=== PATIENT | male | born 1970 | race Caucasian/White ===

== ENCOUNTER → 2017-10-20 | Outpatient (CLI) | payer BC ==
[~2017-10-20] MED LIST: BACLOFEN20 MG PO; BUPRENORPHINE HC2 MG SL; IBUPROFEN 800800 M1 PO; LIORESAL 10 MG10 MG PO; MEDROLDOSEPACK PO; MOBIC15 MG PO; NEURONTIN 300300 M1 PO; NUCYNTA50 MG PO; SKELAXIN 800 M800 M1 PO; TRAMADOL 50 MG50 MG PO; VOLTAREN100 GM TOP
--- NOTE | 2017-11-02 08:21 | PAINCON ---
[address] [address] PAIN MANAGEMENT CONSULTATION Name: MARILIN ARENAS [id number] Admission: 10/20/17 Attend Phys: Marcus Whiting MD Discharge: Date of : 66 Report #: [id number] THIS REPORT FOR: //name// CC: DO Marcus Cordero DATE OF SERVICE: 10/20/2017 CHIEF COMPLAINT: Low back pain with burning at the end of the day. HISTORY OF PRESENT ILLNESS: The patient is a 47-year-old gentleman who has been seen in the pain clinic because of chronic pain in the neck. He has undergone a spinal cord stimulator. This is for axial pain in his back. This was done in 06/2016. He does not feel that it has been significantly helpful. He has also continued to have cervical pain. He has been seen in the pain clinic by Dr. Howard. He denies any significant history of injury or trauma. He describes the pain as a burning, shooting, cramping, aching, pulling, gnawing, throbbing, pounding pain. He scores the pain as a 4/10 today. It involves his right neck and head. ALLERGIES: No known drug allergies. CURRENT MEDICATIONS: Tylenol 500 mg, Fosamax 70 mg, prednisone 5 mg tablets daily, Motrin 800 mg, tramadol 50 mg q.i.d., metolazone 800 mg t.i.d. PAST MEDICAL HISTORY: Asthma, tobacco use, seasonal allergies, chronic neck and back pain. PAST SURGICAL HISTORY: 1. Left knee surgery. 2. Bladder surgery. 3. Spinal cord stimulator trial implantation and permanent implantation. SOCIAL HISTORY: The patient chews tobacco, has done so for 30 years. Denies use of IV drugs. Occasional alcohol use. 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 REVIEW OF SYSTEMS: Questionnaire in the chart indicated weight changes, headaches, fatigue and weakness, wears glasses, glaucoma/cataracts, shortness of breath when lying flat, chronic frequent coughs, asthma. MUSCULOSKELETAL: Joint pains, joint stiffness, weakness, cramping, back pain, difficulty walking, frequent headaches, dizziness, memory loss, confusion, depression. PAIN CLINIC ASSESSMENT: [place] [address] PAIN MANAGEMENT CONSULTATION Name: MARILIN ARENAS Room: [facility]#: [id number] Admission: 10/20/17 Attend Phys: Marcus Whiting MD Discharge: Date of : 66 Report #: [id number] 1. The patient is not being treated for osteoarthritis or arthritis. 2. Height 6 feet, weight 193 pounds, BMI is 26. 3. VITAL SIGNS: Blood pressure 113/70, heart rate 60, respiratory rate is 16, room air saturation 98%, temperature 97.8. Pain intensity 10/10, at times 7-8/10, baseline 5/10 at its best. 4. Fall risk, the patient has not fallen in the last 3 months. 5. The patient is not on blood thinners. 6. Hypertension. The patient is not being treated for hypertension. 7. Chronic medication use. The patient has a contract with the pain clinic to get his medications from only one source. 8. Risk assessment tool. 9. Functional assessment tool. 10. Recreational drug use. The patient denies use of recreational drugs. Tobacco, the patient has chewed tobacco for the last 30 years. He states that he is trying to cut down. Alcohol: He describes occasional alcoholic use. PHYSICAL EXAMINATION: GENERAL: The patient is a well-developed, well-nourished white male. Appears his stated age. Orientation: The patient is alert and oriented x 3. Affect: the patient's affect is appropriate. HEENT: Normocephalic, atraumatic. Extraocular eye muscles are intact. Sclerae nonicteric. Dentation poor. NECK: Clear to auscultation without adenopathy. LUNGS: Clear. No wheezing, no rhonchi, no rales. CARDIOVASCULAR: Regular rate. ABDOMEN: Nontender, nondistended. EXTREMITIES: No clubbing, cyanosis or edema. There is a well healed surgical scar on his left knee. MUSCULOSKELETAL: The patient without significant kyphosis, lordosis, or scoliosis. Some tenderness over the paraspinous musculature in the cervical spine. No spinous process tenderness. Spurling's is negative. Muscle bulk and tone equal and symmetrical in the upper extremities. Muscle strength is equal at 5/5, intact to light touch C7-T1. Some pain in the low back, L5-S1 area as well as some paraspinal tenderness to palpation. IMPRESSION: 1. History of chronic neck pain. 2. Cervicalgia. 3. Chronic intractable pain, low back area with spinal stimulator. 4. Complex pain management using opioids. PLAN: We discussed treatment options with the patient. We will continue with his current medical regimen. We will renew his medications. A script for tramadol 50 mg 1 p.o. q.i.d., metolazone 800 mg 1 p.o. t.i.d. p.r.n., ibuprofen 800 mg p.o. q.8 hours p.r.n. have been written. The patient will call us if he has any problems with his medications. A script for diclofenac, [place] [address] PAIN MANAGEMENT CONSULTATION Name: MARILIN ARENAS Room: [facility]#: [id number] Admission: 10/20/17 Attend Phys: Marcus Whiting MD Discharge: Date of : 66 Report #: [id number] will be applied to the area of his thumb for the pain and discomfort. He will call us if he has any problems with his medications. We would like to thank you for letting us participate in his care. We hope he continues to improve. <ELECTRONICALLY SIGNED> By: Marcus Whiting MD 11/02/17 0821 1142 2031N. Blake Whiting MD /nt
== END ==
LOC: M.PC 03:51
DX: M54.5 Low back pain (principal); M54.2 Cervicalgia; G89.29 Other chronic pain; Z79.891 Long term (current) use of opiate analgesic

== ENCOUNTER → 2018-03-23 | Outpatient (CLI) | payer BC ==
--- NOTE | 2018-03-29 16:41 | PAINCON ---
[address] [address] PAIN MANAGEMENT CONSULTATION Name: MARILIN ARENAS Room: [facility] Bernabe#: [id number] Admission: 03/23/18 Attend Phys: Marcus Whiting MD Discharge: Date of : 66 Report #: [id number] THIS REPORT FOR: //name// CC: Sinan Whiting DATE OF SERVICE: 03/23/2018 CHIEF COMPLAINT: Chronic neck pain. HISTORY OF PRESENT ILLNESS: The patient is a 47-year-old gentleman who has been referred to the Pain Clinic for evaluation of back pain. The patient states that he has had a spinal cord stimulator in place. Does continue to have pain and discomfort on a regular basis. Does not use a spinal cord stimulator because it does not seem to be very efficacious. He is unable to cover a portion of his back, which is most problematic. Continues to have some pain and discomfort in the palm of his left hand. He has tried Voltaren, not sure how much pain relief that has provided. He has used tramadol in the past, it is not as successful as he would like for it to be. He has used ibuprofen 800 mg and continues to use Skelaxin. He has returned today for renewal of his medications. The patient has tried CBD oil, not sure whether or that was helpful. Did provide him some decrease in his anxiety. Notes that his mornings are worse. He has difficulty getting up and getting started. ALLERGIES: No known drug allergies. CURRENT MEDICATIONS: Tylenol 500 mg, Flomax 70 mg, prednisone 5 mg tablets daily, Motrin 800 mg, tramadol 50 mg q.i.d., metolazone 800 mg t.i.d. PAIN CLINIC ASSESSMENT: 1. The patient is not being treated for osteoarthritis. 2. Height 6 feet, weight 195 pounds, BMI is 26.5. 3. Vital signs: Blood pressure 135/88, respiratory rate 16, room air saturation is 100%, pulse 67, temperature 98.4. Pain score 9/10 today. 4. Fall risk. The patient has not fallen in the last 3 months. 5. Blood thinners. The patient is not on a blood thinning medication. 6. Hypertension. The patient is not being treated for hypertension. 7. Chronic medication use. The patient is on contract and gets medications through the Pain Clinic. 8. Risk assessment tool. 9. Functional assessment tool. 10. Recreational drug use. The patient denies use of recreational drugs. 11. Tobacco: The patient has chewed tobacco for the last 30 years. He is trying to cut down. 12. Alcohol: The patient denies use of alcohol [place] [address] PAIN MANAGEMENT CONSULTATION Name: MARILIN ARENAS Room: [facility]#: [id number] Admission: 03/23/18 Attend Phys: Marcus Whiting MD Discharge: Date of : 66 Report #: [id number] PHYSICAL EXAMINATION: GENERAL: The patient is a well-developed, well-nourished white male. Appears his stated age. He is alert and oriented x3. The patient has an appropriate affect. HEENT: Normocephalic, atraumatic. Extraocular eye muscles intact. Sclerae nonicteric. Mucous membranes are moist. Dentition is poor. NECK: Without adenopathy. LUNGS: Clear to auscultation without rhonchi or rales. ABDOMEN: Nontender. EXTREMITIES: No clubbing, cyanosis or edema. The patient has some pain and discomfort in the anterior portion/palm of his left hand. MUSCULOSKELETAL: Without significant kyphosis, scoliosis or lordosis. The patient has some paraspinous muscle discomfort in his spine. There is some tenderness. Spurling's is negative. Muscle strength is judged to be 5/5 for the major muscle groups in the upper extremity. The patient's low back pain is at approximately L1 through the L5-S1 area. His stimulator does not reach that level. If he turns it up high enough to reach a level causes muscle spasms. IMPRESSION: 1. History of chronic pain in the neck. 2. Cervicalgia. 3. Chronic intractable pain, low back area with some spinal cord stimulator, which he finds less helpful at this juncture. 4. Complex management of pain with the use of opioids. RECOMMENDATIONS: We discussed treatment options with the patient. At this juncture, we will continue with the tramadol 50 mg 1 p.o. q.4-6 hours p.r.n. pain. The patient will try Mobic 15 mg 1 p.o. daily. He will continue with Skelaxin 800 mg t.i.d. and he will call us if he has any problems with his medications. The patient will try a Medrol Dosepak in the interim. We would like to thank you for letting us participate in his care. We hope he continues to improve. <ELECTRONICALLY SIGNED> By: Marcus Whiting MD 03/29/18 1641 1710 [id number]. Blake Whiting MD /nt
== END ==
LOC: M.PC 01-12 09:00
DX: M54.2 Cervicalgia (principal); M54.5 Low back pain; G89.4 Chronic pain syndrome; Z79.899 Other long term (current) drug therapy

== ENCOUNTER → 2018-04-20 | Outpatient (CLI) | payer BC ==
--- NOTE | 2018-05-15 10:00 | PAINCON ---
[address] [address] PAIN MANAGEMENT CONSULTATION Name: DEEPAMARILIN Mchugh Room: [facility] Bernabe#: [id number] Admission: 04/20/18 Attend Phys: Marcus Whiting MD Discharge: Date of : 66 Report #: [id number] THIS REPORT FOR: //name// CC: Sinan Whiting DATE OF SERVICE: 04/20/2018 FOLLOWUP COMPLAINT: The Medrol Dosepak helps somewhat. I felt a little bit more limber. FOLLOWUP HISTORY: The patient is a 47-year-old gentleman, who has been followed in the Pain Clinic. As you recall, he has problems with chronic back pain. Also, has some cervical pain and discomfort as well. He was given a Medrol Dosepak at the last visit. Returns today indicating that the pain was improved somewhat with the Medrol Dosepak. Feels like he was a bit more limber. He does rate his pain as a 10/10 at this juncture. The weather pattern is beginning to change. Denies any new falls. Continues to use tramadol. Feels that it is somewhat helpful. Does not cause any problems with confusion or altering his sensorium. Feels that the Voltaren medication is helpful as well. He puts this in the area of his thumbs. Notes the Mobic or Motrin is helpful. Has used Meloxicam as well. Does not take the medications together. Feels that Skelaxin is somewhat helpful. The patient feels that he has "good days and bad days." Last few days have been more problematic with the reason for his pain being a 10. He has not tried gabapentin medication in the past. Continues to have pain and discomfort with activity, walking, sitting, standing, rising, lifting and bending. Has a spinal cord stimulator in place, but does not use it. ALLERGIES: No known drug allergies. MEDICATIONS: Tylenol 500 mg, Flomax 70 mg, prednisone tablets 5 mg daily, Motrin 800 mg, tramadol 50 mg q.i.d., and metolazone 800 mg t.i.d. PAIN CLINIC ASSESSMENT/PQRS: 1. The patient is not being treated for osteoarthritis or rheumatoid arthritis. 2. Height 6 feet, weight 196 pounds, BMI is 26.6. 3. VITAL SIGNS: Blood pressure 121/61, heart rate 67, respiratory rate 16, room air saturation 99%, and temperature 98.7. 4. Pain intensity 10/10. 5. Fall risk. The patient has not fallen in the last 3 months. 6. Hypertension. The patient has not been treated for hypertension. 7. Chronic opioid use. The patient denies use of medications other than those provided by the Pain Clinic. 8. Risk assessment tool. 9. Functional assessment tool. 10. Recreational drug use. The patient denies use [place] [address] PAIN MANAGEMENT CONSULTATION Name: MARILIN ARENAS Room: [facility]#: [id number] Admission: 04/20/18 Attend Phys: Marcus Whiting MD Discharge: Date of : 66 Report #: [id number] 11. Tobacco: The patient chews tobacco. He is trying to cut down on the amount of chewing tobacco. He is aware that this is problematic for his health. He is aware that nicotine levels are higher with use of this then with smoking. I have discussed the possible problems with oral health. 12. Alcohol. The patient denies other than occasional use of alcoholic beverages. PHYSICAL EXAMINATION: GENERAL: The patient is a well-developed, well-nourished white male. Appears his stated age. He is alert and oriented x 3. His affect is appropriate. HEENT: Normocephalic, atraumatic. Extraocular eye muscles intact. Sclerae nonicteric. Mucous membranes are moist. Dentition is somewhat poor. Show signs of chewing tobacco. NECK: Without adenopathy. LUNGS: Clear to auscultation without rhonchi or rales. ABDOMEN: Nontender. EXTREMITIES: Upper extremity without cyanosis or edema. The patient has some pain and discomfort in the anterior portion of his palm and in his left hand. MUSCULOSKELETAL: Without significant kyphosis, scoliosis, or lordosis. The patient walks with a slight limp and an antalgic gait. Muscle strength in the upper extremity is judged to be 5/5 as well as in the lower extremity. Spurling's test is negative. The patient has some pain and discomfort when problematic. It is in the L5-S1 area. The patient does have a spinal cord stimulator which he is not using. IMPRESSION: 1. History of chronic neck pain. 2. Axial back pain. 3. Cervicalgia. 4. Chronic intractable pain in the low back area with a spinal cord stimulator which he finds less helpful at this juncture. 5. Complex management pain using opioids in the past with tramadol at this juncture. RECOMMENDATIONS: We discussed treatment options with the patient. We will continue with his current medication. The patient will be tried on gabapentin. States that he has not used this medication. We explained the possible benefits of gabapentin medications. We will start the patient at 300 mg 1 p.o. daily, increase it to b.i.d. and finally t.i.d. as he is able to tolerate it. He will stop taking the medication if he has any problems with it. He will take it on Tuesday on a day when he does not have to report for work. He will call us if he has any concerns. <ELECTRONICALLY SIGNED> By: Marcus Whiting MD 05/15/18 1000 [id number] 1120N. Blake Whiting MD /nt
== END ==
LOC: M.PC 01:44
DX: M54.2 Cervicalgia (principal); M54.5 Low back pain; G89.29 Other chronic pain

== ENCOUNTER → 2018-05-23 | Outpatient (CLI) | payer BC ==
--- NOTE | 2018-06-14 16:20 | PAINCON ---
[address] [address] PAIN MANAGEMENT CONSULTATION Name: MARILIN ARENAS Room: [facility] Bernabe#: [id number] Admission: 05/23/18 Attend Phys: Marcus Whiting MD Discharge: Date of : 66 Report #: [id number] THIS REPORT FOR: //name// CC: Sinan Whiting DATE OF SERVICE: 05/23/2018 CHIEF COMPLAINT: Chronic neck pain. HISTORY OF PRESENT ILLNESS: The patient is a 48-year-old gentleman who has been followed in the pain clinic. He has some pain at this juncture in his back. As you recall, he has a spinal cord stimulator in place. Continues to have pain and discomfort in the middle of his back at about T8 to the lower lumbar area. He feels that his spinal cord stimulator does help at times. Notes that he has pain and discomfort in the left leg with some numbness and tingling. Has noticed some decreased effectiveness of the stimulator. In the past had pain, which was improved on the left as well as the right side. He has noted some pain and discomfort and rates it as a 7/10 today. His job is changing over the machines. He has been off work for the last 2 weeks. He is contemplating talking with the [employer]. He is wondering whether or not it could be reprogrammed to cover more of his pain in the upper back/mid back area. He feels that his medications are helpful. With use of his stimulator finds about 1 tramadol per day can be efficacious. Sometimes uses 2. He feels that the gabapentin and Meloxicam have been helpful. He is not taking ibuprofen. Feels Skelaxin and muscle relaxants beneficial as well. Notes that he does have some pain and discomfort with activities, changing of the weather. The weather has changed from 60s to one morning of 28. Walking, sitting, standing, climbing stairs as can be problematic. The patient changed to brakes on his 's car. States it took him about the entire day. When he was younger noticed that remember that he would be able to do this in about 3 hours. Attributes it to getting older. Notes that some days are better than others. ALLERGIES: No known drug allergies. MEDICATIONS: Tylenol 500 mg, Fosamax 70 mg, prednisone 5 mg daily, Mobic 15 mg daily, Skelaxin 800 mg t.i.d., tramadol 50 mg q.i.d. p.r.n., gabapentin 300 mg t.i.d. PAIN CLINIC ASSESSMENT/PQRS: 1. The patient does have a history of osteoarthritis, states that he has had about 7 surgeries on his left knee. He has not been treated for rheumatoid arthritis. 2. Height 6 feet, weight 201 pounds, BMI is 27.4. 3. Vital signs: Blood pressure 138/78, heart rate 60, respiratory rate 16, room air saturation is 99%. [place] [address] PAIN MANAGEMENT CONSULTATION Name: MARILIN ARENAS Room: [facility]#: [id number] Admission: 05/23/18 Attend Phys: Marcus Whiting MD Discharge: Date of : 66 Report #: [id number] 4. Temperature 97.5. 5. Pain intensity 7/10. 6. Fall history: The patient has not fallen in the last 3 months. 7. Blood thinner. The patient is not on a blood thinning medication. 8. Hypertension. The patient is being treated for hypertension. 9. Opioids greater than 6 weeks. The patient received medications from the pain clinic. 10. Risk assessment tool low for opioid use. 11. Recreational drug use: The patient denies. 12. Tobacco: The patient denies use of tobacco, but does chew tobacco. He chewed for about 40 years. Discussed the benefits of stopping the use of tobacco, particularly with possibility of oral cancer. 13. Alcohol: The patient denies use of alcoholic beverages except on occasion. PHYSICAL EXAMINATION: GENERAL: The patient is a well-developed, well-nourished white male. Appears his stated age. He is alert and oriented x3. Affect is appropriate. Speech is fluent. HEAD, EYES, EARS, NOSE, AND THROAT: Normocephalic, atraumatic. Extraocular eye muscles intact. Sclerae nonicteric. Mucous membranes are moist. Dentition is somewhat poor. NECK: Without adenopathy or JVD. LUNGS: Clear to auscultation without rhonchi or rubs. ABDOMEN: Nontender. Bowel sounds present. EXTREMITIES: Upper extremities, judged to be 5/5 for the major muscle groups. Has pain in the anterior portion of his left hand. MUSCULOSKELETAL: Without kyphosis, scoliosis or lordosis. The patient moves in the chair from a sitting to a standing position very slowly with placing his hands on the chair to stand as well as placing his hands on the posterior portion of his back and hips while he stands. Complains of some pain and discomfort down in the left leg with numbness and tingling. This has helped with use of the nerve stimulator. States that prolonged use of the nerve stimulator can be problematic and the patient turned it down during the day, uses of this stimulator can cause muscle spasms. IMPRESSION: 1. History of chronic pain in the neck. 2. Cervicalgia. 3. Chronic intractable pain, low back area. Spinal cord stimulator in place. 4. Complex management of pain with use of opioids. RECOMMENDATIONS: We discussed treatment options with the patient. At this juncture, we will continue with his current use of tramadol, Mobic, and gabapentin. He feels that these medications have been beneficial. He will contact the [employer] person. States that sometimes difficult for him to get in contact with him. He is off work for the next 2 [place] [address] PAIN MANAGEMENT CONSULTATION Name: MARILIN ARENAS Room: [facility]#: [id number] Admission: 05/23/18 Attend Phys: Marcus Whiting MD Discharge: Date of : 66 Report #: [id number] changes in his job. He will seek advice regarding programming of stimulator. He will call us if he has any problems. We would like to thank you for letting us to participate in his care. We hope he continues to improve. <ELECTRONICALLY SIGNED> By: Marcus Whiting MD 06/14/18 1620 1100 1131N. Blake Whiting MD /DYLAN
== END ==
LOC: M.PC 04:58
DX: M54.5 Low back pain (principal); M54.2 Cervicalgia; G89.4 Chronic pain syndrome; F11.20 Opioid dependence, uncomplicated

== ENCOUNTER → 2018-09-12 | Outpatient (CLI) | payer BC ==
[~2018-09-12] MED LIST changes: +ROBAXIN 750 MG750 M1 PO
--- NOTE | 2018-09-15 13:53 | PAINCON ---
[address] [address] PAIN MANAGEMENT CONSULTATION Name: MARILIN ARENAS Room: [facility] Bernabe#: [id number] Admission: 09/12/18 Attend Phys: Marcus Whiting MD Discharge: Date of : 66 Report #: [id number] THIS REPORT FOR: //name// CC: Sinan Whiting DATE OF SERVICE: 09/12/2018 CHIEF COMPLAINT: Chronic neck pain. FOLLOWUP HISTORY: The patient is a 48-year-old gentleman who has been followed in the pain clinic because of neck pain and cervical radicular discomfort. He works at [employer]. Notes that his pain over the last few weeks has waxed and waned. The weather has been changing quite a bit. Notes that the weather and his situation are somewhat stressful. He has been off work, so his pain is a 6.5 today. He has returned today for renewal of his medication. As you may recall, he has a spinal cord stimulator in place. Continues to have pain in the middle of his back at about T8 and in the lumbar area. Feels that the spinal cord stimulator does have some benefit. Having some discomfort down in his left leg with numbness and tingling. He is contemplating talking to the [employer] who has information regarding the stimulator which he is using. He was considering having it reprogrammed to change its mapping. He finds that the tramadol is effective, but less so as time has gone on. Feels that the gabapentin and meloxicam, continue to be helpful. He was given Skelaxin as a muscle relaxant. States that his insurance company would not cover that medication. Notes his pain is worse when he is walking, sitting, standing, climbing stairs. ALLERGIES: No known drug allergies. MEDICATIONS: Tylenol 500 mg, Fosamax 70 mg, prednisone 5 mg daily, Mobic 15 mg, Skelaxin was not pain for, tramadol 50 mg 1 p.o. q.i.d., gabapentin 300 mg t.i.d. PAIN CLINIC ASSESSMENT/PQRS: 1. The patient does have a history of osteoarthritis. States he has had seven surgeries on his left knee. He has not been treated for rheumatoid arthritis. 2. Height 6 feet 0 inches, weight 194 pounds, BMI is 26.2. 3. Vital signs: Blood pressure 112/65, heart rate 75, respiratory rate 16, room air saturation is 98%. Temperature 98.5. 4. Pain intensity 6.5/10. 5. Fall history: The patient has not fallen in the last 3 months. 6. Blood thinner. The patient is not on a blood thinning medication. 7. Hypertension. He is not being treated for hypertension. 8. Opioids greater than 6 weeks. 9. The patient receives his medication [facility], [place] [address] PAIN MANAGEMENT CONSULTATION Name: MARILIN ARENAS Room: [facility]#: [id number] Admission: 09/12/18 Attend Phys: Marcus Whiting MD Discharge: Date of : 66 Report #: [id number] 10. Risk assessment tool, low for opioid use. 11. Functional assessment tool. 12. Recreational drug use. The patient denies use of recreational drugs. 13. Tobacco: The patient continues to chew tobacco. We discussed the ramifications of tobacco use. 14. Alcohol: The patient denies use of alcoholic beverages. PHYSICAL EXAMINATION: GENERAL: The patient is a well-developed, well-nourished white male. Appears his stated age. He is alert and oriented x 3. His affect is appropriate. Speech is fluent. HEENT: Normocephalic, atraumatic. Extraocular eye muscles intact. Sclerae nonicterus. Mucous membranes are moist. Dentition is somewhat poor and characteristics of someone who would chew tobacco. NECK: Without adenopathy or JVD. LUNGS: Clear to auscultation without rhonchi or rales. ABDOMEN: Nontender. Bowel sounds present. EXTREMITIES: Upper extremity muscle strength is judged to be 5/5 for the major muscle groups in the upper extremity, some pain and discomfort in the left hand. MUSCULOSKELETAL: Without kyphosis, scoliosis or lordosis. Goes from a sitting to a standing position by using his hands to help change position. Does have some numbness in his left leg with numbness and tingling. Continues to use his nerve stimulator. Notes that use of his stimulator can caused some muscle spasms. IMPRESSION: 1. History of chronic pain in the neck. 2. Cervicalgia. 3. Chronic intractable pain, low back area, status post spinal cord stimulator placement. 4. Complex medical management with use of opioids. RECOMMENDATIONS: We discussed treatment options with the patient. At this juncture, he feels that his medications are helpful. They are not as effective as he would like, but does find that the tramadol is beneficial that the gabapentin is helpful. Mobic continues to be used. The patient was unable to get Skelaxin. His insurance would not cover it. We have written for Robaxin 750 mg 1 p.o. t.i.d. and he would note the efficacy of this medication. We would like to thank you for letting us participate in his care. We hope he continues to improve. <ELECTRONICALLY SIGNED> By: Marcus Whiting MD 09/15/18 [id number]. Blake Whiting MD /nt
== END ==
LOC: M.PC 12:20
DX: M54.2 Cervicalgia (principal); G89.4 Chronic pain syndrome; M54.5 Low back pain; Z79.891 Long term (current) use of opiate analgesic; Z79.899 Other long term (current) drug therapy

== ENCOUNTER → 2018-12-05 | Outpatient (CLI) | payer BC ==
[~2018-12-05] MED LIST changes: +ALEVE PM CAPLE1 EACH PO; +IBU800 MG PO; +NEURONTIN 400400 M1 PO
--- NOTE | ~2018-12-05 | PAINCON ---
[address] [address] PAIN MANAGEMENT CONSULTATION Name: ARENASMARILIN Mchugh Room: [facility] Bernabe#: [id number] Admission: 12/05/18 Attend Phys: Marcus Whiting MD Discharge: Date of : 66 Report #: [id number] THIS REPORT FOR: //name// CC: Kahlil Paige DATE OF SERVICE: 12/05/2018 CHIEF COMPLAINT: Chronic neck pain. HISTORY OF PRESENT ILLNESS: The patient is a 48-year-old gentleman who has been followed in the pain clinic because of cervical radicular pain. He continues to work. He finds his medications are helpful. They do not cause any confusion. He is able to continue with his job at [employer] with a clear sensorium. He has had some pain and discomfort in the lower portion of his back for years. He feels that his medications are somewhat less effective. He has seen a chiropractor. Feels that, that is sometimes helpful. He does not feel that the meloxicam is working to the level that he would like. He feels that ibuprofen 800 mg is more beneficial and would like to revert back to that medication. Rates his pain as 9/10. Notes that the pain is worse with activity, walking, sitting, standing, bending, and lifting. He has returned today for renewal of his medication. He does have a spinal cord stimulator in place. He does find that sometimes it can be helpful and uses it as needed. ALLERGIES: No known drug allergies. CURRENT MEDICATIONS: Tylenol 500 mg, Fosamax 70 mg, prednisone 5 mg, Mobic 15 mg, Skelaxin, tramadol 50 mg 1 p.o. q.i.d., gabapentin 300 mg t.i.d. PAIN CLINIC ASSESSMENT AND PQRS: 1. The patient does have a history of osteoarthritis. He has had 7 surgeries on his left knee. He has not been treated for rheumatoid arthritis. 2. Height 6 feet, weight 194 pounds, BMI is 26.5. 3. Vital signs: Blood pressure 118/76, heart rate 64, respiratory rate 16, room air saturation 100%, temperature 98.4. 4. Pain intensity 10. 5. Fall history. The patient has not fallen in the last 3 months. 6. Blood thinner. The patient is not on a blood thinning medication. 7. Hypertension. The patient is not being treated for hypertension. 8. Opioids greater than 6 weeks. The patient receives medication from one source, the pain clinic. 9. Risk assessment tool, low for opioid use. 10. Functional assessment tool. 11. Recreational drug use. The patient denies [place] [address] PAIN MANAGEMENT CONSULTATION Name: MARILIN ARENAS Room: [facility]#: [id number] Admission: 12/05/18 Attend Phys: Marcus Whiting MD Discharge: Date of : 66 Report #: [id number] 12. Tobacco: The patient continues to chew tobacco. Discussed ramification of tobacco and possibly oral cancers. 13. Alcohol: The patient denies use of alcoholic beverages. PHYSICAL EXAMINATION: GENERAL: The patient is a well-developed, well-nourished white male. Appears his stated age. He is alert and oriented x 3. His affect is appropriate. Speech is fluent. HEENT: Normocephalic, atraumatic. Extraocular eye muscles intact. Sclerae nonicteric. Mucous membranes are moist. The patient has poor dentition. Commensurate with someone who chews tobacco with caries. NECK: Without adenopathy or JVD. LUNGS: Clear to auscultation without rhonchi or rales. ABDOMEN: Nontender. Bowel sounds present. EXTREMITIES: Upper extremity muscle strength is judged to be 5/5 for the major muscle groups in the upper extremity. Has some discomfort in the left hand. MUSCULOSKELETAL: The patient without significant scoliosis, kyphosis or lordosis. He goes from a sitting to a standing position using his hands to change position. He has some numbness in his left leg with numbness and tingling. Continues to use his nerve stimulator. Does have muscle spasms. IMPRESSION: 1. History of chronic pain in the neck. 2. Low back pain. 3. Cervicalgia. 4. Chronic intractable low back pain, status post spinal cord stimulator placement. 5. Complex medical management, using his opioids. RECOMMENDATIONS: The patient states that he is not having any problems with his medications. He is able to think clearly. He is able to perform his job at work without problem. Feels that the medications are helpful and able him to stay gainfully employed. Feels that the medications are providing benefit. He is aware of the possible complications of opioid use, which could be addiction as well as less efficacy because of development of tolerance. He feels his medications are helpful. He feels that the ibuprofen medication 800 mg is more beneficial than use of the meloxicam. He will resume use of ibuprofen 800 mg 1 p.o. t.i.d. as needed. He will call us if he has any concerns. We would like to thank you for letting us participate in his care. We hope he continues to improve. By: [id number]. MD GAETANO Woodward
== END ==
LOC: M.PC 06-20 11:50
DX: G89.29 Other chronic pain (principal); M54.2 Cervicalgia; M54.5 Low back pain; M19.90 Unspecified osteoarthritis, unspecified site; F17.220 Nicotine dependence, chewing tobacco, uncomplicated; Z79.899 Other long term (current) drug therapy; Z79.891 Long term (current) use of opiate analgesic

== ENCOUNTER → 2019-02-20 | Outpatient (CLI) | payer BC ==
[~2019-02-20] MED LIST changes: +ROBAXIN 750 MG750 MG PO
--- NOTE | ~2019-02-20 | PAINCON ---
[address] [address] PAIN MANAGEMENT CONSULTATION Name: DEEPAMAIRLIN Mchugh Room: [facility]ORY Kidd#: [id number] Admission: 02/20/19 Attend Phys: Marcus Whiting MD Discharge: Date of : 66 Report #: [id number] THIS REPORT FOR: //name// CC: Kahlil Paige DATE OF SERVICE: 02/20/2019 CHIEF COMPLAINT: Chronic neck pain as well as back and leg pain. HISTORY: The patient is a 48-year-old gentleman who has been followed in the pain clinic because of chronic pain. He has pain in the cervical area. Continues to work at [employer]. He finds his medications continue to be helpful. There is no problem with confusion. He is able to think clearly. He has had 7 knee surgeries. Also, has some low back pain and discomfort. He recently mowed his lawn. After mowing the lawn, he oftentimes can have pain, which is quite problematic. He has a dorsal column stimulator in place. He is not sure how effective this is at this juncture. He had it placed by [employer]. He does use it on occasion, but feels that it is not covering the areas he would like to have a cover most. He rates his pain as a 10/10 at this point. Continues to use nonsteroidal anti-inflammatory medications, was using ibuprofen in conjunction with Aleve. He does have pain, which is problematic and has been following up with a chiropractor. He states that this treatment has been beneficial and that he goes about twice monthly. He recently from his about 3 weeks ago. He has returned today for medications. He has decreased his gabapentin from 400 three times a day to 400 mg b.i.d. He just felt that he did not notice a significant change after decreasing it. He would like to consider having [facility] come by and check his stimulator at his next visit. ALLERGIES: No known drug allergies. CURRENT MEDICATIONS: Tylenol 500 mg, Proscar 70 mg, prednisone 5 mg, Mobic 15 mg, Skelaxin, tramadol 50 mg q.i.d., gabapentin 400 mg b.i.d. PAIN CLINIC ASSESSMENT/PQRS: 1. Osteoarthritis: The patient has had 7 knee surgeries. He has been not being treated for rheumatoid arthritis. 2. Height 6 feet 0 inches, weight 195 pounds, BMI is 26. 3. VITAL SIGNS: Blood pressure 108/78, heart rate 70, respiratory rate 16, room air saturation 98%, temperature 98.1. 4. Pain intensity 10/10. 5. Fall history: The patient has not fallen in the last 3 months. 6. Blood thinner. The patient is not on a blood thinning medication. 7. Hypertension. The patient is not [place] [address] PAIN MANAGEMENT CONSULTATION Name: MARILIN ARENAS [id number] Admission: 02/20/19 Attend Phys: Marcus Whiting MD Discharge: Date of : 66 Report #: [id number] 8. Opioids greater than 6 weeks. The patient receives medication from one source the pain clinic. 9. Risk assessment tool, low for opioid use. 10. Functional assessment tool. 11. Recreational drug use. The patient denies use of recreational drugs. 12. Tobacco: The patient continues to chew tobacco. Discussed ramification of tobacco use with the patient regarding possible surgery, possible oral cancers. 13. Alcohol: The patient denies use of alcoholic beverages. PHYSICAL EXAMINATION: GENERAL: The patient is a well-developed, well-nourished white male. Appears to be his stated age. He is alert and oriented x 3. His affect is appropriate. Speech is fluent. HEENT: Normocephalic, atraumatic. Extraocular eye muscles intact. The patient is important intention. NECK: Without adenopathy or JVD. LUNGS: Clear to auscultation. ABDOMEN: Nontender. Bowel sounds present. EXTREMITIES: Upper extremity muscle strength judged to be 5-/5 for the major muscle groups in the upper extremity. The patient has some discomfort in the left hand. The patient has some pain and discomfort in lower portion of his back. He has pain that radiates from the L4 paraspinous area to the dorsum of his sacrum, left and right. Complains of some pain that radiates down to his buttocks area. Notes that left leg has some numbness. Continues to use the nerve stimulator on occasion. Does have muscle spasms. IMPRESSION: 1. History of chronic pain in the neck. 2. Low back pain. 3. Cervicalgia. 4. Chronic intractable pain status post spinal cord stimulator placement by [employer]. 5. Complex medical management using opioid type medications and medication management. RECOMMENDATIONS: 1. We discussed treatment options with the patient. At this juncture, we will increase the patient's gabapentin to 400 mg 1 p.o. t.i.d. We explained to the patient that some patients do not have significant benefit until they cross the threshold of 1800 mg of gabapentin per day. The patient would only take this if he were able to take it without problems with mentation or affecting his job. The patient also feels that the Ultram medication is helpful. We will continue with the Ultram 50 mg 1 p.o. t.i.d. The patient also will continue with Neurontin 400 mg t.i.d. at this juncture. We may increase this in the near future. 2. Ibuprofen 800 mg. We discussed in length the [place] [address] PAIN MANAGEMENT CONSULTATION Name: MARILIN ARENAS Room: [facility]#: [id number] Admission: 02/20/19 Attend Phys: Marcus Whiting MD Discharge: Date of : 66 Report #: [id number] too much nonsteroidal anti-inflammatory medication with the GI ramification as well as the kidney ramifications. The patient will also continue with the methocarbamol to help with the muscle spasms. We would like to thank you for letting us participate in his care. A script for these medications have been rewritten. By: [id number]. Blake Whiting MD /sulma
== END ==
LOC: M.PC 05:17
DX: M54.2 Cervicalgia (principal); M54.5 Low back pain; G89.4 Chronic pain syndrome; M19.90 Unspecified osteoarthritis, unspecified site; Z79.899 Other long term (current) drug therapy; Z79.891 Long term (current) use of opiate analgesic

== ENCOUNTER → 2019-05-15 | Outpatient (CLI) | payer BC ==
[~2019-05-15] MED LIST changes: +HYDROCODON-ACE1 EAC7 PO
--- NOTE | 2019-05-23 09:09 | PAINCON ---
[address] [address] PAIN MANAGEMENT CONSULTATION Name: MARILIN ARENAS [facility] [id number] Admission: 05/15/19 Attend Phys: Marcus Whiting MD Discharge: Date of : 66 Report #: [id number] THIS REPORT FOR: //name// CC: GABINO Whiting DATE OF SERVICE: 05/15/2019 PRIMARY CARE PHYSICIAN: Gabino Bedoya. CHIEF COMPLAINT: Here for medication, still having pain in my neck. HISTORY: The patient is a 49-year-old gentleman who has been followed in the pain clinic because of pain and discomfort involving his neck as well as low back. He finds that his pain continues to be problematic. Continues to work at a [employer]. Notes that the work is somewhat hard. He is demanding. He does work on an assembly line. He states that today his low back feels as though it is broken. He has had pain, which has been quite problematic. He states that he has been so bad that he has felt somewhat nauseated. He does have a spinal cord stimulator in place. It has been less effective. He is considering having [employer] business [employer] representative evaluate it and make adjustments. Rates his pain as a 7/10 at this point. Notes that activities, walking, sitting, standing, bending, and lifting all can be problematic. Pain improves somewhat when he rests. ALLERGIES: No known drug allergies. CURRENT MEDICATIONS: Tylenol 500 mg, prednisone 5 mg, Mobic 15 mg, Skelaxin, tramadol 50 mg four times a day, and gabapentin 400 mg b.i.d. PAIN CLINIC ASSESSMENT AND PQRS: 1. The patient has pain and discomfort in his knees and has had knee surgery. He is not being treated for rheumatoid arthritis. 2. Height 6 feet 0 inch, weight 207 pounds, and BMI is 28. 3. Vital signs: Blood pressure 133/69, heart rate 67, respiratory rate 16, room air saturation 97%, and temperature 98.2. 4. Pain intensity 02/07. 5. Fall history: The patient has not fallen in the last 3 months. 6. Blood thinner. The patient is not on a blood thinning medication. 7. Hypertension. The patient is not being treated for hypertension. 8. Opioids greater than 6 weeks. The patient receives medication from [facility]. 9. Risk assessment tool, low for opioid use. 10. Functional [place] [address] PAIN MANAGEMENT CONSULTATION Name: MARILIN ARENAS Room: [facility]#: [id number] Admission: 05/15/19 Attend Phys: Marcus Whiting MD Discharge: Date of : 66 Report #: [id number] 11. Recreational drug use. The patient denies use of recreational drugs. 12. Tobacco: The patient continues to chew tobacco. We have discussed the ramifications of tobacco use. 13. Alcohol. The patient denies use of alcoholic beverages. PHYSICAL EXAMINATION: GENERAL: The patient is a well-developed, well-nourished white male. Appears his stated age. He is alert and oriented x 3. His affect is appropriate. Speech is fluent. HEENT: Normocephalic, atraumatic. Extraocular eye muscles intact. Sclerae nonicteric. Mucous membranes are moist. The patient has poor dentition with caries. NECK: Without adenopathy or JVD. LUNGS: Clear to auscultation. ABDOMEN: Nontender. Bowel sounds present. EXTREMITIES: Upper extremity muscle strength judged to be 5-/5 for the major muscle groups in the upper extremity. The patient has some discomfort in his left hand. Has some discomfort in his back. Complains of pain that radiates down to the L4 paraspinous area in the dorsum of sacrum, left and right. Has pain that radiates down to the buttocks area. Has had left leg numbness with tingling/numbness. Occasionally uses nerve stimulator. IMPRESSION: 1. Chronic pain in the neck. 2. Low back pain. 3. Cervicalgia. 4. Chronic intractable pain, status post spinal cord stimulator placement by [employer]. 5. Complex medical management using opioid type medications. RECOMMENDATIONS: 1. We discussed treatment options with the patient. At this juncture, we will continue with his medications of gabapentin, ibuprofen, Robaxin, and tramadol. We will provide the patient with hydrocodone 5 mg 1 p.o. daily. Hopefully, when he goes home from work when his pain is unrelenting he will gain some benefit from this. We have discussed the problems with opioid medications. They can be helpful for a period of time and then they lose their effectiveness. 2. Robaxin 750 mg 1 p.o. t.i.d., gabapentin 400 mg 1 p.o. t.i.d., ibuprofen 800 mg 1 p.o. t.i.d. and the patient will monitor his stomach, and tramadol 50 mg one p.o. q.4-6 hours total of 120 tablets. He will call us if he has any concerns. We would like to thank you for letting us participate in his care. He will be [address] [place] [address] PAIN MANAGEMENT CONSULTATION Name: MARILIN ARENAS Room: [facility]#: [id number] Admission: 05/15/19 Attend Phys: Marcus Whiting MD Discharge: Date of : 66 Report #: [id number] evaluated by [facility] and see whether or not they can improve the pattern of stimulation in his lower back. <ELECTRONICALLY SIGNED> By: Marcus Whiting MD 05/23/19 [id number]. Blake Whiting MD /nt
== END ==
LOC: M.PC 05:45
DX: M54.5 Low back pain (principal); M54.2 Cervicalgia; G89.4 Chronic pain syndrome; Z79.891 Long term (current) use of opiate analgesic; Z88.8 Allergy status to other drugs, medicaments and biological substances; Z79.899 Other long term (current) drug therapy

== ENCOUNTER → 2019-08-07 | Outpatient (CLI) | payer BC ==
--- NOTE | ~2019-08-07 | PAINCON ---
[address] [address] PAIN MANAGEMENT CONSULTATION Name: MARILIN ARENAS Room: [facility] NORY Kidd#: [id number] Admission: 08/07/19 Attend Phys: Marcus Whiting MD Discharge: Date of : 66 Report #: [id number] THIS REPORT FOR: //name// CC: Kahlil Whiting DATE OF SERVICE: 08/07/2019 CHIEF COMPLAINT: Medicine is helpful. "I sometimes use the spinal cord stimulator." HISTORY: The patient is a 49-year-old gentleman who has been followed in the pain clinic because of chronic pain. Has pain in his neck. Has pain in the low back area. Has experienced right knee pain. As you may recall because of back pain, he has a spinal cord stimulator in place. He notes that this is sometimes helpful. The maker is [employer]. He has been working with them to make adjustments to it to increase his level of comfort. May consider a new spinal cord stimulator in the future. He did fall at work. States that he injured his right knee. It was around [facility] and the medical services were not available for him to report his injury. Rates his pain as a 9/10. Found that the hydrocodone medication p.r.n. helped to improve his pain. Continues with the ibuprofen. Finds that the gabapentin medication 400 mg 3 times a day is helpful as well. The weather has changed and has gotten colder. Notes that with activity, walking, sitting, standing, bending, lifting all can contribute to his pain. He has returned today with the hopes of renewing his medications. A script for his medications will be rewritten. ALLERGIES: No known drug allergies. CURRENT MEDICATIONS: Tylenol 500 mg p.r.n., gabapentin 400 mg 1 p.o. t.i.d., tramadol 50 mg one p.o. q. 4-6 hours p.r.n., ibuprofen 800 mg t.i.d., Robaxin 750 mg p.o. t.i.d. PAIN CLINIC ASSESSMENT AND PQRS: 1. The patient has some pain and discomfort in his knees as well as in his leg. He is not being treated for rheumatoid arthritis. 2. Height 6 feet 0 inches, weight 216 pounds, BMI is 29. 3. Vital signs: Blood pressure is 133/86, heart rate 64, respiratory rate 16, room air saturation is 94%, temperature 97.8. 4. Fall risk. The patient did fall at work and injured his right knee. He did fall and fractured his right thumb. 5. Blood thinner. The patient is not on a blood thinning medication. 6. Hypertension. The patient is not being treated for hypertension. 7. Opioids greater than 6 weeks. The patient received medication from [facility] [place] [address] PAIN MANAGEMENT CONSULTATION Name: MARILIN ARENAS Room: [facility]#: [id number] Admission: 08/07/19 Attend Phys: Marcus Whiting MD Discharge: Date of : 66 Report #: [id number] 8. Risk assessment tool, low for opioid use. 9. Functional assessment tool. 10. Recreational drug use: The patient denies. 11. Tobacco: The patient chews tobacco. 12. Alcohol. The patient denies frequent use of alcoholic beverages. PHYSICAL EXAMINATION: GENERAL: The patient is a well-developed, well-nourished white male. Appears his stated age. He is alert and oriented x 3. His affect is appropriate. Speech is fluent. HEENT: Normocephalic, atraumatic. Extraocular eye muscles intact. Sclerae nonicteric. Mucous membranes are moist. The patient has poor dentition with caries. Does chew tobacco. NECK: Without adenopathy or JVD. LUNGS: Clear to auscultation. ABDOMEN: Nontender. Bowel sounds present. EXTREMITIES: Upper extremity muscle strength judged to be 5/5 for the major muscle groups in the upper extremity. The patient has pain and discomfort in lower portion of his back. Has pain that radiates down the L4-L5 area. Notes some tingling in the left foot. Does use his nerve stimulator on occasion. IMPRESSION: 1. Chronic pain in the neck. 2. Chronic low back pain. 3. Cervicalgia. 4. Chronic intractable pain with the spinal cord stimulator in place provided by [employer]. 4. Complex medical management using opioid medications. RECOMMENDATIONS: 1. We discussed treatment options with the patient. At this juncture, we will continue with his medications of tramadol. He feels that this medication helps to keep the edge off his pain. He will also continue with the muscle relaxant, Robaxin. He is able to use these medications without significant problems with his sensorium. He is able to work with a clear sensorium on his job. 2. Gabapentin. We will continue with gabapentin 400 mg 1 p.o. t.i.d. The patient has been provided with hydrocodone 5/325 one tablet daily on those days when his pain is quite problematic and unrelenting. He will consider his course regarding dorsal column stimulator, weather he needs another replacement in the future. A script for his medications of ibuprofen 800 mg 1 p.o. t.i.d., Robaxin 750 mg 1 p.o. t.i.d., hydrocodone 5/325 one p.o. daily and tramadol 50 mg one p.o. q. 4-6 hours have been written. He will continue with gabapentin 400 mg t.i.d. He will call us if he [place] [address] PAIN MANAGEMENT CONSULTATION Name: MARILIN ARENAS Room: [facility]#: [id number] Admission: 08/07/19 Attend Phys: Marcus Whiting MD Discharge: Date of : 66 Report #: [id number] We would like to thank you for letting us participate in his care. We hope he continues to improve. By: [id number] Whiting MD /sulma
== END ==
LOC: M.PC 09:28
DX: M54.2 Cervicalgia (principal); M54.5 Low back pain; G89.4 Chronic pain syndrome; I10 Essential (primary) hypertension; Z79.891 Long term (current) use of opiate analgesic; Z79.899 Other long term (current) drug therapy

== ENCOUNTER → 2019-10-30 | Outpatient (CLI) | payer BC ==
--- NOTE | 2019-10-31 08:25 | PAINCON ---
[address] [address] PAIN MANAGEMENT CONSULTATION Name: MARILIN ARENAS Room: [facility].#: [id number] Admission: 10/30/19 Attend Phys: Marcus Whiting MD Discharge: Date of : 66 Report #: [id number] THIS REPORT FOR: //name// cc: Kahlil Bedoya MD, Harold A. MD ~ THIS REPORT FOR: //name// CC: DO Marcus Gunderson DATE OF SERVICE: 10/30/2019 PRIMARY CARE PHYSICIAN: Kahlil Bedoya MD CHIEF COMPLAINT: Pain in the mid back and down into the area of the belt line. HISTORY: The patient is a 49-year-old gentleman who has been followed in the pain clinic. As you may recall, he has pain in number of areas. He has had pain in his neck. He also complains of pain, which is most problematic at this area in the lower portion of his back down to the waistline area. He has noticed an increase in his pain and discomfort. He has been unable to go to the chiropractor. He feels that chiropractic treatment has been beneficial. He has not had enough time to go to at this point. He feels that his medications continue to be helpful. He does have a spinal cord stimulator in place, which provides some benefit. He has been off from work for about 2 or 3 weeks. As a result, he has had less pain and discomfort. He describes the pain in his low back area near his belt line as though he had been "hit the back with a baseball bat." Notes that his pain can become quite uncomfortable. It sometimes rise to the level that he has pain significant enough to cause him some nausea. On occasion, he has vomited. He has returned today for renewal of his medication. ALLERGIES: No known drug allergies. CURRENT MEDICATIONS: Tylenol 500 mg p.r.n., gabapentin 400 mg 1 p.o. t.i.d., tramadol 50 mg one every 4-6 hours, ibuprofen 800 mg t.i.d., Robaxin 750 mg t.i.d. PAIN CLINIC ASSESSMENT AND PQRS: 1. The patient has some pain and discomfort in his back from mid back at about T12 down to his belt line. He is not being treated for rheumatoid arthritis. 2. Height 6 feet, weight 219 pounds, BMI is 29.8. 3. Vital signs: Blood pressure 117/69, heart rate 75, respiratory rate 16, room air saturation 98%, temperature 98.0. 4. Pain intensity 8.5/10. 5. Fall history: The patient has not fallen in the last [address] [place] [address] PAIN MANAGEMENT CONSULTATION Name: MARILIN ARENAS Room: [facility]#: [id number] Admission: 10/30/19 Attend Phys: Marcus Whiting MD Discharge: Date of : 66 Report #: [id number] 6. Blood thinner. The patient is not on a blood thinning medication. 7. Hypertension. The patient is not being treated for hypertension. 8. Opioids greater than 6 weeks. The [facility]. 9. Risk assessment tool, low for opioid use. 10. Functional assessment tool. 11. Recreational drug use: The patient denies. 12. Tobacco: The patient denies use of smoking tobacco, but does chew tobacco. We discussed the benefits of chewing tobacco. 13. Alcohol. The patient denies frequent use of alcoholic beverages. PHYSICAL EXAMINATION: GENERAL: The patient is a well-developed, well-nourished white male. Appears his stated age. He is alert and oriented x 3. His affect is appropriate. Speech is fluent. HEENT: Normocephalic, atraumatic. Extraocular eye muscles intact. Sclerae nonicteric. Mucous membranes are moist. The patient does have poor dentition and carries consistent with chewing tobacco. NECK: Without adenopathy or JVD. LUNGS: Clear to auscultation. ABDOMEN: Nontender. Bowel sounds present. MUSCULOSKELETAL: Upper extremity muscle strength judged to be 5/5 for the major muscle groups in the upper extremity. The patient has pain and discomfort in lower portion of his back from the mid portion of his back at approximately T12 down to the L4-L5 lumbar area. Does have a spinal nerve stimulator in place. Does use it on occasion. IMPRESSION: 1. Chronic pain in the low back area. 2. Chronic low back pain. 3. Cervicalgia. 4. Chronic intractable pain with spinal cord stimulator in place/[employer]. 5. Complex medical management using opioid medications. RECOMMENDATIONS: We discussed treatment options with the patient. At this juncture, we will continue with his medication. A script for his medications have been provided. The patient will continue with the tramadol medication one q. 6 hours p.r.n. He will also continue with gabapentin 400 mg 1 p.o. t.i.d. The patient will note the use of ibuprofen. Again, he sometimes feels his stomach is upset, sometimes throws up when the pain is great. He will try to see whether ibuprofen has any bearing on that nausea. He will also continue with Robaxin 750 mg for muscle relaxation. We would like to thank you for letting us participate in his care. He is aware that these medications, which are opioid like might become less effective as [facility] [address] [place] [address] PAIN MANAGEMENT CONSULTATION Name: MARILIN ARENAS Room: [facility].#: [id number] Admission: 10/30/19 Attend Phys: Marcus Whiting MD Discharge: Date of : 66 Report #: [id number] time goes on secondary to development of tolerance. We would like to thank you for letting us participate in his care. We hope he continues to improve. <ELECTRONICALLY SIGNED> By: Marcus Whiting MD 10/31/19 0825 [id number]. Blake Whiting MD /[facility]
== END ==
LOC: M.PC 04:37
DX: M54.5 Low back pain (principal); M54.2 Cervicalgia; F11.20 Opioid dependence, uncomplicated; Z79.899 Other long term (current) drug therapy

== ENCOUNTER → 2020-01-22 | Outpatient (CLI) | payer BC ==
[~2020-01-22] MED LIST changes: +ELIQUIS2.5 MG PO
--- NOTE | 2020-02-07 15:59 | PAINCON ---
[address] [address] PAIN MANAGEMENT CONSULTATION Name: MARILIN ARENAS Room: [facility].#: [id number] Admission: 01/22/20 Attend Phys: Marcus Whiting MD Discharge: Date of : 66 Report #: [id number] THIS REPORT FOR: //name// cc: Kahlil Bedoya MD, Harold A. MD ~ THIS REPORT FOR: //name// CC: Kahlil Whiting DATE OF SERVICE: 01/22/2020 CHIEF COMPLAINT: Here for medication renewal. HISTORY: The patient is a 49-year-old male who has been followed in the pain clinic because of chronic pain. He has a history of low back and right knee pain. He had a blood clot left leg. He has an open wound in his left ankle. He has returned to work at [employer]. Rates his pain as a 10/10 today. Does have a spinal cord stimulator in place that sometimes is helpful. Notes that activities such as walking, sitting, standing, bending, twisting can increase his pain. He has some increased swelling in his left knee. He has returned today with hopes of having his medications renewed. ALLERGIES: No known drug allergies. CURRENT MEDICATIONS: Tylenol 500 mg p.r.n., gabapentin 400 mg t.i.d., tramadol 50 mg every 4-6 hours, ibuprofen 800 mg t.i.d., Robaxin 750 mg t.i.d. PAIN CLINIC ASSESSMENT/PQRS: 1. The patient has some pain and discomfort in his back as well as some discomfort in his left leg. 2. Vital Signs: Height 6 feet, weight 214 pounds. Blood pressure 144/91, heart rate 73, respiratory rate 16, room air saturation 98%, temperature 98.4. 3. Pain intensity 10/10. 4. Fall history: The patient has not fallen in the last 3 months. 5. Blood thinner. The patient is not on any blood thinning medication. 6. Hypertension. The patient is not being treated for hypertension. 7. Opioids greater than 6 weeks. The patient received medication from the pain clinic. 8. Risk assessment tool, low for opioid use. 9. Functional assessment tool reviewed. 10. Recreational drug use. The patient denies. 11. Tobacco: The patient does not smoke, but he does chew tobacco. 12. Alcohol. The patient denies frequent use of alcoholic beverages. PHYSICAL EXAMINATION: [place] [address] PAIN MANAGEMENT CONSULTATION Name: MARILIN ARENAS Room: [facility]#: [id number] Admission: 01/22/20 Attend Phys: Marcus Whiting MD Discharge: Date of : 66 Report #: [id number] GENERAL: The patient is a well-developed, well-nourished white male. Appears his stated age. He is alert and oriented x 3. His affect is appropriate. Speech is fluent. HEENT: Normocephalic, atraumatic. Extraocular eye muscles intact. Sclerae nonicteric. Mucous membranes are moist. The patient is wearing a mask. NECK: Without adenopathy or JVD. LUNGS: Clear to auscultation. ABDOMEN: Nontender. MUSCULOSKELETAL: Upper extremity muscle strength judged to be 5/5 for the major muscle in the upper extremity. The patient has some pain and discomfort in lower portion of his back from approximately T12 down to the L4-L5 area. The patient does still have his spinal cord stimulator device and uses on occasion. IMPRESSION: 1. Chronic low back pain, intractable pain with use of a spinal cord stimulator placed/[employer]. 2. Complex medical management using opioids. RECOMMENDATIONS: We discussed treatment options with the patient. At this juncture, we will continue with his medications. A script for hydrocodone 5 mg 1 p.o. daily has been prescribed. He will also continue with tramadol 50 mg. States that he is able to work with these medications on board. He does not have any problems with thinking clearly and being able to work. A script for his medications has been written. He will continue with Ibuprofen 800 mg 3 times daily as tolerated. Sometimes uses Robaxin 750 mg t.i.d., he feels that the tramadol still helpful and we will continue with this medication. He will continue with gabapentin 400 mg one p.o. t.i.d. He will call us if he has any concerns. We would like to thank you for letting us to participate in his care. He continues to improve. <ELECTRONICALLY SIGNED> By: Marcus Whiting MD 02/07/20 1559 0958 1600N. Blake Whiting MD /DYLAN
== END ==
LOC: M.PC 04:37
PROVIDERS: ATTEND Anesthesiology Pain Medicine
DX: M54.5 Low back pain (principal); G89.29 Other chronic pain; F11.20 Opioid dependence, uncomplicated; Z79.899 Other long term (current) drug therapy

== ENCOUNTER → 2020-04-15 | Outpatient (CLI) | payer BC ==
--- NOTE | 2020-04-16 09:50 | PAINCON ---
[address] [address] PAIN MANAGEMENT CONSULTATION Name: MARILIN ARENAS Room: [facility]#: [id number] Admission: 04/15/20 Attend Phys: Marcus Whiting MD Discharge: Date of : 66 Report #: [id number] THIS REPORT FOR: //name// cc: Sinan Lambert Mohammad K. DO ~ THIS REPORT FOR: //name// CC: GABINO Whiting DATE OF SERVICE: 04/15/2020 CHIEF COMPLAINT: Pain in the left ankle from a slow healing wound and low back pain. HISTORY: The patient is a 50-year-old gentleman who has been followed in the pain clinic. As you may recall, he has had a long history of back pain. He has continued to have pain in his low back area. He has undergone spinal cord stimulator placement. He still has axial back pain, which is quite problematic. He continues to work at [employer]. He notes that his pain is a 10/10 today. He is having pain that radiates down into his low back area. He states that on occasion when he stands, it feels as though something catches. It is down in the sacral area. He has felt that his "knees buckle." He has not sought medical treatment because of the fall. He continues to follow up in the wound clinic. The artery in the medial portion of his left leg is still problematic. He still states he has a clot up in the groin area. He has noted some breakdown of skin in the area of distribution of the affected artery. He is also having knee problems. He has had 7 knee surgeries. He is following up with his orthopedic surgeon in that regard. He does feel that he is under a lot of stress. He recently sold his house. He has one month to leave and move to another address. He notes that his pain is problematic with activities of daily living, changes in temperature, walking, sitting, standing, climbing stairs, bending and lifting. He has returned today for renewal of his medications. ALLERGIES: No known drug allergies. CURRENT MEDICATIONS: Tylenol 500 mg p.o. p.r.n., gabapentin 400 mg t.i.d., tramadol 50 mg every 4-6 hours, ibuprofen 80 mg t.i.d., Robaxin 750 mg t.i.d., hydrocodone 5 mg p.o. daily p.r.n. pain. PAIN CLINIC ASSESSMENT AND PQRS: 1. The patient has some pain and discomfort in his back as well as discomfort in the left leg. He has some wound in the left medial portion of his leg above the ankle. 2. Vital Signs: Blood pressure 144/91, heart rate 66, respiratory rate 16, [place] [address] PAIN MANAGEMENT CONSULTATION Name: MARILIN ARENAS Room: [facility]#: [id number] Admission: 04/15/20 Attend Phys: Marcus Whiting MD Discharge: Date of : 66 Report #: [id number] room air saturation 97%. 3. Pain intensity, 10. 4. Height 6 feet, weight 220 pounds, BMI is 29, temperature 97.3. 5. Fall history: The patient states that his knees have buckled on occasion when he has stood because of pain, which is so intense in his low back area, radiating down into the leg area. 6. Blood thinner. The patient is on a blood thinning medication, Eliquis 2.5 mg. 7. Hypertension. The patient is not being treated for hypertension. 8. Opioids greater than 6 weeks. The [facility]. 9. Risk assessment tool, low for opioid use. 10. Functional assessment tool reviewed. 11. Recreational drug use. The patient denies. 12. Tobacco: The patient does not smoke, but does chew tobacco. 13. Alcohol. The patient denies frequent use of alcoholic beverages. PHYSICAL EXAMINATION: GENERAL: The patient is a well-developed, well-nourished white male. Appears his stated age. He is alert and oriented x 3. His affect is appropriate. Speech is fluent. HEENT: Normocephalic, atraumatic. Extraocular eye muscles intact. Sclerae nonicteric. Mucous membranes are moist. The patient has a facial covering. NECK: Without adenopathy or JVD. LUNGS: Generally clear. ABDOMEN: Nontender. HEART: Regular rate. MUSCULOSKELETAL: Upper extremity muscle strength judged to be 5-/5 for the major muscle groups in the upper extremity. The patient has some pain and discomfort in the left leg with pain in the left knee. Has some break down/wound problem in the area above the medial malleolus. The patient has a spinal cord stimulator in place. The patient walks with an antalgic gait. The patient states that he still has a clot up in the left groin area. IMPRESSION: 1. Chronic low back pain with intractable pain using a spinal cord stimulator/[employer]. 2. Complex medical management using opioids. 3. History of deep venous thrombosis in the left leg with skin breakdown above the medial malleolus. 4. Chronic knee pain. RECOMMENDATIONS: We discussed treatment options with the patient. At this juncture, we will continue with his medications of hydrocodone 5 mg 1 p.o. daily. He will also continue with tramadol 50 mg 1 p.o. q.i.d. He is going to follow up with his orthopedic surgeon. He states that he has had 3 [place] [address] PAIN MANAGEMENT CONSULTATION Name: MARILIN ARENAS Room: [facility] NORY Kidd#: [id number] Admission: 04/15/20 Attend Phys: Marcus Whiting MD Discharge: Date of : 66 Report #: [id number] the wound care physician. His leg is still healing very slowly. He states that the orthopedic doctor is aware of his problem with the infection and he is going to follow up with him in regards to knee surgery. A script for his medications have been written. He will continue with gabapentin 400 mg t.i.d. He will also continue with hydrocodone to help with increasing low back pain, 5 mg 1 tablet p.r.n., ibuprofen 800 mg t.i.d., Robaxin 750 mg t.i.d. and tramadol 50 mg one p.o. q. 6 hours p.r.n. for pain. The patient states that this medication does not affect his ability to perform his activities of daily living and activities of his job at [employer]. We would like to thank you for letting us participate in his care. We hope he continues to improve. Script for his medications have been sent to his pharmacy. <ELECTRONICALLY SIGNED> By: Marcus Whiting MD 04/16/20 0950 1049 1742N. Blake Whiting MD /nt
== END ==
LOC: M.PC 09:00
PROVIDERS: ATTEND Anesthesiology Pain Medicine
DX: M54.5 Low back pain (principal); M25.572 Pain in left ankle and joints of left foot; M25.561 Pain in right knee; M25.562 Pain in left knee; G89.29 Other chronic pain; F11.20 Opioid dependence, uncomplicated; Z86.718 Personal history of other venous thrombosis and embolism; Z79.899 Other long term (current) drug therapy

== ENCOUNTER → 2020-08-26 | Outpatient (CLI) | payer BC ==
[~2020-08-26] MED LIST changes: +ZESTRIL5 MG PO
== END ==
LOC: M.PC 12:46
PROVIDERS: ATTEND Anesthesiology Pain Medicine
DX: M25.562 Pain in left knee (principal); M54.5 Low back pain; Z86.718 Personal history of other venous thrombosis and embolism; Z98.890 Other specified postprocedural states; Z79.899 Other long term (current) drug therapy

== ENCOUNTER 2020-10-10 21:28 | Inpatient (IN) | payer BC ==
[~2020-10-10] VITALS: Ht 182.9 cm; Wt 99.8 kg
[2020-10-10 22:10] LABS: ABSOLUTE EOSINOPHILS 0.3 thou/uL (0.0-0.7); ABSOLUTE MONOCYTES 0.6 thou/uL (0.0-1.2); BASOPHILS 0.4 %; EOSINOPHILS 5.2 %; HEMATOCRIT 41.3 % (42.0-52.0); HEMOGLOBIN 13.7 gm/dL (14.0-18.0); LYMPHOCYTES 33.7 %; MCH 30.9 pg (26.0-34.0); MCHC 33.2 g/dL (28.0-37.0); MCV 93.2 fL (80.0-100.0); MONOCYTES 10.1 %; MPV 6.8 fl. (7.2-11.1); NUCLEATED RBCS 0 /100WBC; PLATELET COUNT* 279 thou/uL (150-400); POLYS 50.6 %; RBC 4.44 mil/uL (4.50-6.00); RDW-CV 13.7 % (10.5-14.5); WBC 5.9 thou/uL (4.0-11.0)
[2020-10-10 22:17] LABS: CALCIUM 8.3 mg/dL (8.5-10.1); CREATININE 1.1 mg/dL (0.6-1.3); POTASSIUM 3.3 mmol/L (3.5-5.1)
[2020-10-10 22:24] LABS: ACETAMINOPHEN 41 ug/mL (10-30); ALCOHOL 349 mg/dL (<10); SALICYLATE < 2.8 mg/dL (2.8-20.0)
[2020-10-10] MEDS ORDERED: NEURONTIN 400M400 M2 PO (22:27)
[2020-10-10] MEDS ORDERED: METHOCARBAMOL750 MG PO (22:27)
[2020-10-10] MEDS ORDERED: MONTELUKAST SODI4 M1 PO (22:28)
[2020-10-10 22:29] LABS: ALBUMIN 3.6 g/dL (3.4-5.0); TOTAL BILIRUBIN 0.2 mg/dL (<0.1-1.0); TOTAL PROTEIN 6.9 g/dL (6.4-8.2)
[2020-10-10 22:55] LABS: BE -4.2 mmol/L (-2 to +3)
[2020-10-10 23:00] LABS: PCO2 53.5 mmHg (35.0-45.0); PO2 131.7 mmHg (75.0-100.0)
[2020-10-10 23:06] LABS: AMP/METHAMP Negative (Negative); BARBITURATES Negative (Negative); BENZODIAZEPINES Negative (Negative); COCAINE Negative (Negative); METHADONE Negative (Negative); OPIATES POSITIVE (Negative); PCP Negative (Negative); THC Negative (Negative)
[2020-10-11] VITALS (21 sets, daily range): BP systolic 85–124; BP diastolic 50–80
[2020-10-11 12:41] LABS: INR 1.1; PROTIME 11.2 Seconds (9.20-11.50)
[2020-10-12] VITALS (19 sets, daily range): BP systolic 105–128; BP diastolic 35–82
[2020-10-12 04:05] LABS: CALCIUM 8.3 mg/dL (8.5-10.1); POTASSIUM 4.4 mmol/L (3.5-5.1)
[2020-10-12 04:10] LABS: ABSOLUTE BASOPHILS 0.1 thou/uL (0.0-0.2); ABSOLUTE EOSINOPHILS 0.3 thou/uL (0.0-0.7); ABSOLUTE LYMPHOCYTES 1.9 thou/uL (0.8-5.3); ABSOLUTE MONOCYTES 0.5 thou/uL (0.0-1.2); ABSOLUTE NEUTROPHILS 3.6 thou/uL (1.6-8.1); EOSINOPHILS 5.2 %; HEMATOCRIT 37.7 % (42.0-52.0); HEMOGLOBIN 12.6 gm/dL (14.0-18.0); LYMPHOCYTES 29.7 %; MCH 31.4 pg (26.0-34.0); MCHC 33.5 g/dL (28.0-37.0); MCV 93.7 fL (80.0-100.0); MONOCYTES 8.2 %; MPV 7.2 fl. (7.2-11.1); NUCLEATED RBCS 0 /100WBC; PLATELET COUNT* 233 thou/uL (150-400); POLYS 55.9 %; RBC 4.03 mil/uL (4.50-6.00); RDW-CV 13.9 % (10.5-14.5); WBC 6.4 thou/uL (4.0-11.0)
[2020-10-12 09:13] LABS: DIRECT BILIRUBIN 0.1 mg/dL (<0.1-0.3); TOTAL BILIRUBIN 0.3 mg/dL (<0.1-1.0); TOTAL PROTEIN 5.9 g/dL (6.4-8.2)
[2020-10-13] VITALS: BP 126/66
[2020-10-13 04:00] VITALS: BP 133/43
[2020-10-13 04:07] VITALS: BP 133/43
[2020-10-13 04:27] LABS: ABSOLUTE BASOPHILS 0.1 thou/uL (0.0-0.2); ABSOLUTE EOSINOPHILS 0.4 thou/uL (0.0-0.7); ABSOLUTE LYMPHOCYTES 1.6 thou/uL (0.8-5.3); ABSOLUTE MONOCYTES 0.6 thou/uL (0.0-1.2); ABSOLUTE NEUTROPHILS 3.8 thou/uL (1.6-8.1); BASOPHILS 1.2 %; HEMATOCRIT 40.2 % (42.0-52.0); HEMOGLOBIN 13.6 gm/dL (14.0-18.0); LYMPHOCYTES 24.2 %; MCH 31.1 pg (26.0-34.0); MCHC 33.9 g/dL (28.0-37.0); MCV 91.6 fL (80.0-100.0); MONOCYTES 8.7 %; MPV 7.3 fl. (7.2-11.1); NUCLEATED RBCS 0 /100WBC; PLATELET COUNT* 250 thou/uL (150-400); POLYS 59.9 %; RBC 4.39 mil/uL (4.50-6.00); RDW-CV 13.7 % (10.5-14.5); WBC 6.4 thou/uL (4.0-11.0)
[2020-10-13 04:43] LABS: ALBUMIN 3.1 g/dL (3.4-5.0); CALCIUM 8.6 mg/dL (8.5-10.1); CREATININE 1.1 mg/dL (0.6-1.3); POTASSIUM 3.7 mmol/L (3.5-5.1); TOTAL BILIRUBIN 0.6 mg/dL (<0.1-1.0); TOTAL PROTEIN 6.4 g/dL (6.4-8.2)
[2020-10-13 08:05] VITALS: BP 128/60
--- NOTE | 2020-10-13 10:37 | EKG ---
[place] [address] ELECTROCARDIOGRAM REPORT Name: MARILIN ARENAS Room: [address] IN [facility].#: [id number] Admission: 10/10/20 Attend Phys: Dee Lagunas, Discharge: Date of : 66 Date of Service: 10/10/205 Report #: [id number] THIS REPORT FOR: //name// [facility] ED Test Date: 2020-10-10 Test Time: 21:35:42 Pat Name: MARILIN ARENAS Department: Room: [facility] Gender: M Production Planner: INES : 1970 Requested By: Katie Jean Baptiste Order Number: [id number] MD: Tyson Thompson Measurements Intervals [place] Rate: 95 P: 44 OR: 164 QRS: 230 QRSD: 104 T: 49 QT: 376 QTc: 473 Interpretive Statements Sinus rhythm Consider right ventricular hypertrophy No previous ECG available for comparison Electronically Signed On 10-13-2020 10:37:07 CDT by Tyson Thompson [email or web address] <ELECTRONICALLY SIGNED> By: Tyson Thompson MD, [facility] 10/13/20 1037 34 Tyson Thompson MD, [facility] /EPI
[2020-10-13 12:18] VITALS: BP 113/60
== END 2020-10-13 17:08 | DRG 917 ==
LOC: M.ERS 21:28 → M.2W 23:06 → M.ICU 23:06 → M.TBA-ER 23:06 → M.ICU 10-11 00:13 → M.2W 10-12 21:48
PROVIDERS: Emergency Medicine; Internal Medicine; ADMIT Internal Medicine; ATTEND Internal Medicine
PROC: 5A09357 Assistance with Respiratory Ventilation, Less than 24 Consecutive Hours, Continuous Positive Airway Pressure (ICD-10-PCS; principal; 2020-10-11)
DX: T40.2X2A Poisoning by other opioids, intentional self-harm, initial encounter (principal); G92 Toxic encephalopathy; J96.02 Acute respiratory failure with hypercapnia; R45.851 Suicidal ideations; T40.422A Poisoning by tramadol, intentional self-harm, initial encounter; T39.1X2A Poisoning by 4-Aminophenol derivatives, intentional self-harm, initial encounter; J45.909 Unspecified asthma, uncomplicated; F10.229 Alcohol dependence with intoxication, unspecified; I73.9 Peripheral vascular disease, unspecified; G89.29 Other chronic pain; M54.9 Dorsalgia, unspecified; Z20.822 Contact with and (suspected) exposure to COVID-19; Z79.01 Long term (current) use of anticoagulants; Z72.89 Other problems related to lifestyle; Z79.899 Other long term (current) drug therapy; Y92.89 Other specified places as the place of occurrence of the external cause; Y90.8 Blood alcohol level of 240 mg/100 ml or more

== ENCOUNTER → 2020-11-18 | Outpatient (CLI) | payer BC ==
[~2020-11-18] MED LIST changes: +CYMBALTA30 MG PO; +LYRICA100 MG PO; +METHOCARBAMOL750 MG PO; +MONTELUKAST SODI4 M1 PO; +NEURONTIN 400M400 M2 PO
== END ==
LOC: M.PC 09:48
PROVIDERS: ATTEND Anesthesiology Pain Medicine
DX: M25.562 Pain in left knee (principal); T50.992A Poisoning by other drugs, medicaments and biological substances, intentional self-harm, initial encounter; J96.00 Acute respiratory failure, unspecified whether with hypoxia or hypercapnia; J96.12 Chronic respiratory failure with hypercapnia; F10.129 Alcohol abuse with intoxication, unspecified; I73.9 Peripheral vascular disease, unspecified; F17.200 Nicotine dependence, unspecified, uncomplicated; M54.5 Low back pain; G89.29 Other chronic pain; Z79.01 Long term (current) use of anticoagulants

== ENCOUNTER → 2021-03-17 | Outpatient (CLI) | payer BC ==
[~2021-03-17] MED LIST changes: +NEURONTIN600 MG PO
== END ==
LOC: M.PC 08:53
PROVIDERS: ATTEND Anesthesiology Pain Medicine
DX: J96.02 Acute respiratory failure with hypercapnia (principal); I73.9 Peripheral vascular disease, unspecified; G89.4 Chronic pain syndrome; M25.562 Pain in left knee; Z72.89 Other problems related to lifestyle; Z79.01 Long term (current) use of anticoagulants; Z79.899 Other long term (current) drug therapy; Z79.891 Long term (current) use of opiate analgesic